=== PATIENT | female | born 1985 | race African-American/Black ===

== ENCOUNTER 2020-09-02 10:11 | Emergency (ER) | payer BC ==
[~2020-09-02] VITALS: Ht 177.8 cm; Wt 122.0 kg
[2020-09-02 10:20] VITALS: BP 150/98
[2020-09-02] MEDS ORDERED: IBUP-2029 MT (11:07)
[2020-09-02] MEDS ORDERED: METH-375 MT (11:07)
== END 2020-09-02 11:28 | disposition home or self-care (01) ==
LOC: ER 10:48
DX: M62.838 Other muscle spasm (principal); L30.9 Dermatitis, unspecified; Z88.0 Allergy status to penicillin; Z91.012 Allergy to eggs; Z91.013 Allergy to seafood; Z91.010 Allergy to peanuts
CPT/HCPCS: 99281

== ENCOUNTER 2020-09-14 08:11 | Emergency (ER) | payer BC ==
[~2020-09-14] VITALS: Ht 177.8 cm; Wt 125.0 kg
[~2020-09-14 08:11] MED LIST: IBUP-2029 MT; METH-375 MT
[2020-09-14] MEDS ORDERED: IBUPROFEN 600MG TABLET PO STA (08:35)
[2020-09-14 09:35] LABS: CLARITY URINE CLEAR (CLEAR); COLOR URINE YELLOW (YELLOW); KETONES URINE TRACE (NEGATIVE); LEUKOCYTE ESTERASE URINE NEGATIVE (NEGATIVE); NITRITE URINE NEGATIVE (NEGATIVE); OCCULT BLOOD URINE TRACE (NEGATIVE); PH URINE 5.5 (4.5-8.0); PROTEIN URINE NEGATIVE (NEGATIVE); SPECIFIC GRAVITY URINE 1.035 (1.005-1.030)
[2020-09-14 10:20] VITALS: BP 130/78
== END 2020-09-14 10:21 | disposition home or self-care (01) ==
LOC: ER 08:11
DX: M79.18 Myalgia, other site (principal); R51.9 Headache, unspecified; E34.8 Other specified endocrine disorders; R10.2 Pelvic and perineal pain; M54.2 Cervicalgia; Z87.828 Personal history of other (healed) physical injury and trauma
CPT/HCPCS: 72170; 81003; 81025; 99285